=== PATIENT | male | born 1950 | race African-American/Black ===

== ENCOUNTER 2023-04-14 19:20 | Inpatient (IN) | payer BC ==
[2023-04-14 20:18] VITALS: BMI 20.5
[2023-04-14] MEDS ORDERED: P-EPHED 60MG/TRIPROLIDI 2.5MG TABLET PO PRN (21:21)
[2023-04-14] MEDS ORDERED: BENZOCAINE/MENTHOL (CHLORASEPTIC ) LOZENGE MM PRN (21:21)
[2023-04-14] MEDS ORDERED: MAGNESIUM HYDROX 2400MG/30ML ORAL SUSPENSION 30 ML CUP PO PRN (21:21)
[2023-04-14] MEDS ORDERED: ACETAMINOPHEN 325 MG TABLET (FP) PO PRN (21:21)
[2023-04-14] MEDS ORDERED: BISMUTH SUBSALICYLATE 524 MG/30 ML PO PRN (21:21)
[2023-04-14] MEDS ORDERED: NALOXONE HCL 0.4 MG/ML VIAL IM PRN (21:21)
[2023-04-14] MEDS ORDERED: IBUPROFEN 600 MG TABLET (FP) PO PRN (21:21)
[2023-04-14] MEDS ORDERED: IBUPROFEN 400 MG TABLET (FP) PO PRN (21:21)
[2023-04-14] MEDS ORDERED: MAG HYDROX/AL HYDROX/SIMETH 30 ML UNIT-DOSE CUP PO PRN (21:21)
[2023-04-14] MEDS ORDERED: ONDANSETRON *ODT* 4 MG TABLET SL PRN (21:21)
[2023-04-14] MEDS ORDERED: POLYETHYLENE GLYCOL (HEALTHYLAX) 3350 17 GM PACKET PO PRN (21:21)
[2023-04-14] MEDS ORDERED: LOPERAMIDE HCL 2 MG CAPSULE PO PRN (21:21)
[2023-04-14] MEDS ORDERED: guaiFENesin 600 MG TABLET.ER (FP) PO PRN (21:21)
[2023-04-14] MEDS ORDERED: NALOXONE HCL (KLOXXADO) 8 MG SPRAY NS PRN (21:21)
[2023-04-14] MEDS ORDERED: BENZONATATE 200 MG CAPSULE PO PRN (21:21)
[2023-04-14] MEDS ORDERED: cloNIDine HCL 0.1 MG TABLET PO PRN (22:38)
[2023-04-14] MEDS: THIAMINE HCL 100 MG TABLET (FP) PO SCH (23:25)
[2023-04-15] MEDS ORDERED: methaDONE HCL 10 MG TABLET (FOR DETOX USE ONLY) PO ONE (09:17)
[2023-04-15] MEDS: PRENATAL VITAMINS W/ FOLIC ACID TABLET (FP) PO SCH (10:24)
[2023-04-15 10:41] LABS: HEMATOCRIT 38.2 % (35.4-49); HEMOGLOBIN 12.6 GM/dL (11.7-16.9); MCH 28.7 pg (25.7-33.7); MCHC 33.1 g/dl (32.0-35.9); MEAN CELL VOLUME 86.8 fl (80-96); MEAN PLT VOLUME 9.6 fl (7.5-11.1); PLATELET COUNT 178 10^3/uL (134-434); RDW 15.7 % (11.9-15.9)
[2023-04-15 10:47] LABS: POTASSIUM 3.3 mmol/L (3.5-5.1)
[2023-04-15 10:58] LABS: BLOOD UREA NITROGEN 9.8 mg/dL (7-18)
[2023-04-15 10:59] LABS: CALCIUM 8.8 mg/dL (8.5-10.1)
[2023-04-15 11:01] LABS: CREATININE 0.9 mg/dL (0.55-1.3)
[2023-04-15 11:03] LABS: BILIRUBIN,TOTAL 0.8 mg/dL (0.2-1); TOT PROT 6.6 g/dl (6.4-8.2)
[2023-04-15] MEDS: PATIENT'S OWN MEDICATION (NON-FORMULARY) (Brinzolamide/Brimonidine Tart [Simbrinza 1%-0.2% OD SCH ×2 (13:53→22:14)
[2023-04-15] MEDS: THIAMINE HCL 100 MG TABLET (FP) PO SCH (22:14)
[2023-04-15] MEDS: POTASSIUM CHLORIDE ORAL LIQUID 20 MEQ/15 ML PO SCH (22:14)
[2023-04-15] MEDS: MELATONIN 5 MG TABLETS PO PRN (22:14)
[2023-04-15] MEDS: LATANOPROST 0.005% OPHTH SOLN 2.5ML BOTTLE OD SCH (22:18)
[2023-04-16] MEDS: PATIENT'S OWN MEDICATION (NON-FORMULARY) (Brinzolamide/Brimonidine Tart [Simbrinza 1%-0.2% OD SCH ×5 (05:34→21:59)
[2023-04-16] MEDS: PRENATAL VITAMINS W/ FOLIC ACID TABLET (FP) PO SCH (09:58)
[2023-04-16] MEDS: POTASSIUM CHLORIDE ORAL LIQUID 20 MEQ/15 ML PO SCH (09:58)
[2023-04-16] MEDS ORDERED: POTASSIUM CHLORIDE ORAL LIQUID 20 MEQ/15 ML PO ONE (13:30)
[2023-04-16] MEDS: cloNIDine HCL 0.1 MG TABLET PO PRN (21:58)
[2023-04-16] MEDS: THIAMINE HCL 100 MG TABLET (FP) PO SCH (21:58)
[2023-04-16] MEDS: LATANOPROST 0.005% OPHTH SOLN 2.5ML BOTTLE OD SCH (21:59)
[2023-04-17] MEDS: PATIENT'S OWN MEDICATION (NON-FORMULARY) (Brinzolamide/Brimonidine Tart [Simbrinza 1%-0.2% OD SCH ×3 (05:49→22:36)
[2023-04-17] MEDS ORDERED: methaDONE HCL 10 MG TABLET (FOR DETOX USE ONLY) PO ONE (10:00)
[2023-04-17] MEDS: PRENATAL VITAMINS W/ FOLIC ACID TABLET (FP) PO SCH (10:13)
[2023-04-17] MEDS: MELATONIN 5 MG TABLETS PO PRN (22:05)
[2023-04-17] MEDS: THIAMINE HCL 100 MG TABLET (FP) PO SCH (22:05)
[2023-04-17] MEDS: cloNIDine HCL 0.1 MG TABLET PO PRN (22:05)
[2023-04-17] MEDS: LATANOPROST 0.005% OPHTH SOLN 2.5ML BOTTLE OD SCH (22:36)
[2023-04-18] MEDS: PATIENT'S OWN MEDICATION (NON-FORMULARY) (Brinzolamide/Brimonidine Tart [Simbrinza 1%-0.2% OD SCH ×3 (05:19→22:07)
[2023-04-18] MEDS: PRENATAL VITAMINS W/ FOLIC ACID TABLET (FP) PO SCH (10:11)
[2023-04-18] MEDS: THIAMINE HCL 100 MG TABLET (FP) PO SCH (22:07)
[2023-04-18] MEDS: MELATONIN 5 MG TABLETS PO PRN (22:07)
[2023-04-18] MEDS: LATANOPROST 0.005% OPHTH SOLN 2.5ML BOTTLE OD SCH (22:08)
[2023-04-19] MEDS: PATIENT'S OWN MEDICATION (NON-FORMULARY) (Brinzolamide/Brimonidine Tart [Simbrinza 1%-0.2% OD SCH ×3 (06:00→21:01)
[2023-04-19] MEDS ORDERED: methaDONE HCL 10 MG TABLET (FOR DETOX USE ONLY) PO ONE (10:00)
[2023-04-19] MEDS: PRENATAL VITAMINS W/ FOLIC ACID TABLET (FP) PO SCH (10:11)
[2023-04-19] MEDS: THIAMINE HCL 100 MG TABLET (FP) PO SCH (22:06)
[2023-04-19] MEDS: LATANOPROST 0.005% OPHTH SOLN 2.5ML BOTTLE OD SCH (22:06)
[2023-04-20] MEDS: PATIENT'S OWN MEDICATION (NON-FORMULARY) (Brinzolamide/Brimonidine Tart [Simbrinza 1%-0.2% OD SCH ×2 (06:16→13:18)
[2023-04-20 09:34] VITALS: RESP 16
[2023-04-20] MEDS: PRENATAL VITAMINS W/ FOLIC ACID TABLET (FP) PO SCH (10:19)
[2023-04-20 12:57] VITALS: BP 119/70; PULSE 84; TEMP 97.4
== END 2023-04-20 13:44 | disposition home or self-care (01) | DRG 897 ==
LOC: YASAS 19:20 → Y3N 22:16
PROVIDERS: ADMIT Allergy & Immunology; ATTEND Surgery
PROC: HZ2ZZZZ Detoxification Services for Substance Abuse Treatment (ICD-10-PCS; principal; 2023-04-14)
DX: F11.23 Opioid dependence with withdrawal (principal); F17.210 Nicotine dependence, cigarettes, uncomplicated; E87.6 Hypokalemia; H54.62 Unqualified visual loss, left eye, normal vision right eye; H40.9 Unspecified glaucoma; Z28.310 Unvaccinated for COVID-19; Z28.9 Immunization not carried out for unspecified reason
CPT/HCPCS: 36415; 80053; 84132; 85027; 86780; 87635